=== PATIENT | female | born 2000 | race Caucasian/White ===

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

== ENCOUNTER → 2019-10-11 | Outpatient (CLI) | payer OTHER | LOC: MRI 10:00 | DX: D35.2 Benign neoplasm of pituitary gland (principal); N64.3 Galactorrhea not associated with childbirth ==

== ENCOUNTER → 2019-12-14 | Outpatient (CLI) | payer OTHER | END | disposition home or self-care (01) | LOC: US 11-27 10:00 | DX: N64.3 Galactorrhea not associated with childbirth (principal); N64.4 Mastodynia ==

== ENCOUNTER 2020-01-08 13:44 | Emergency (ER) | payer OTHER ==
[~2020-01-08] VITALS: Ht 162.5 cm; Wt 93.0 kg
[2020-01-08 13:49] VITALS: BP 116/68
[2020-01-08] MEDS ORDERED: IBU600 M1 PO (15:12)
== END 2020-01-08 15:16 | disposition home or self-care (01) ==
LOC: ED 13:44
DX: S90.31XA Contusion of right foot, initial encounter (principal); J45.909 Unspecified asthma, uncomplicated; W10.8XXA Fall (on) (from) other stairs and steps, initial encounter; Y93.89 Activity, other specified; Y92.89 Other specified places as the place of occurrence of the external cause; Y99.8 Other external cause status

== ENCOUNTER 2020-10-01 13:53 | Emergency (ER) | payer OTHER ==
[~2020-10-01] VITALS: Wt 95.3 kg
[~2020-10-01 13:53] MED LIST changes: +IBU600 M1 PO
[2020-10-01 14:31] LABS: BASO % 0.4 % (0.0-1.0); EOS # 0.1 10*3/uL (0.0-0.4); EOS % 1.3 % (1.0-4.0); HEMATOCRIT 42.3 % (37.0-47.0); LYMPH # 2.2 10*3/uL (1.3-4.4); LYMPH % 28.1 % (27.0-41.0); MEAN CELL VOLUME 90.4 fl (81.0-99.0); MEAN CORPUSCULAR HGB 29.5 pg (27.0-31.0); MEAN CORPUSCULAR HGB CONC 32.6 g/dl (33.0-37.0); MONO # 0.4 10*3/uL (0.1-1.0); MONO % 4.7 % (3.0-9.0); NEUT # 5.1 10*3/uL (2.3-7.9); NEUT % 65.4 % (47.0-73.0); PLATELET COUNT AUTOMATED 281 10*3/uL (130-400); RED BLOOD COUNT 4.68 10*6/uL (4.10-5.10); RED CELL DISTRI WIDTH 13.3 % (0-14.5); WHITE BLOOD COUNT 7.8 10*3/uL (4.8-10.8)
[2020-10-01 14:42] LABS: BUN 10 mg/dl (7-24); CHLORIDE 107 mmol/L (98-107); CREATININE 0.84 mg/dL (0.55-1.02); SODIUM 139 mmol/L (136-145)
[2020-10-01 17:53] VITALS: BP 122/60
[2020-10-01] MEDS ORDERED: OMEPRAZOLE40 MG PO (18:11)
== END 2020-10-01 18:30 | disposition home or self-care (01) ==
LOC: ED 13:53
PROVIDERS: Internal Medicine
DX: M94.0 Chondrocostal junction syndrome [Tietze] (principal); K21.9 Gastro-esophageal reflux disease without esophagitis; Z79.899 Other long term (current) drug therapy

== ENCOUNTER 2021-01-31 22:12 | Emergency (ER) | payer OTHER ==
[~2021-01-31] VITALS: Ht 162.5 cm; Wt 95.3 kg
[~2021-01-31 22:12] MED LIST changes: +OMEPRAZOLE40 MG PO
[2021-01-31 22:26] VITALS: BP 120/63
[2021-01-31 23:12] LABS: BASO # 0.1 10*3/uL (0.0-0.1); BASO % 0.4 % (0.0-1.0); EOS # 0.1 10*3/uL (0.0-0.4); EOS % 0.6 % (1.0-4.0); HEMATOCRIT 38.7 % (37.0-47.0); LYMPH # 2.3 10*3/uL (1.3-4.4); LYMPH % 16.9 % (27.0-41.0); MEAN CELL VOLUME 91.1 fl (81.0-99.0); MEAN CORPUSCULAR HGB 29.6 pg (27.0-31.0); MEAN CORPUSCULAR HGB CONC 32.6 g/dl (33.0-37.0); MEAN PLATELET VOLUME 10.3 fl (9.6-12.3); MONO # 0.7 10*3/uL (0.1-1.0); MONO % 4.9 % (3.0-9.0); NEUT # 10.4 10*3/uL (2.3-7.9); NEUT % 76.8 % (47.0-73.0); PLATELET COUNT AUTOMATED 278 10*3/uL (130-400); RED BLOOD COUNT 4.25 10*6/uL (4.10-5.10); RED CELL DISTRI WIDTH 13.5 % (0-14.5); WHITE BLOOD COUNT 13.6 10*3/uL (4.8-10.8)
== END 2021-02-01 00:23 | disposition home or self-care (01) ==
LOC: ED 22:12
PROVIDERS: Emergency Medicine
DX: O26.891 Other specified pregnancy related conditions, first trimester (principal); K21.9 Gastro-esophageal reflux disease without esophagitis; G43.909 Migraine, unspecified, not intractable, without status migrainosus

== ENCOUNTER 2022-02-04 17:01 | Emergency (ER) | payer OTHER ==
[~2022-02-04] VITALS: Wt 111.6 kg
[2022-02-04 17:11] VITALS: BP 142/80
[2022-02-04 18:25] LABS: BASO # 0.1 10*3/uL (0.0-0.1); BASO % 0.6 % (0.0-1.0); EOS # 0.3 10*3/uL (0.0-0.4); EOS % 3.4 % (1.0-4.0); HEMATOCRIT 40.9 % (37.0-47.0); LYMPH # 2.1 10*3/uL (1.3-4.4); LYMPH % 23.6 % (27.0-41.0); MEAN CELL VOLUME 89.3 fl (81.0-99.0); MEAN CORPUSCULAR HGB 29.3 pg (27.0-31.0); MEAN CORPUSCULAR HGB CONC 32.8 g/dl (33.0-37.0); MEAN PLATELET VOLUME 10.3 fl (9.6-12.3); MONO # 0.5 10*3/uL (0.1-1.0); MONO % 5.9 % (3.0-9.0); NEUT # 5.9 10*3/uL (2.3-7.9); NEUT % 66.2 % (47.0-73.0); PLATELET COUNT AUTOMATED 283 10*3/uL (130-400); RED BLOOD COUNT 4.58 10*6/uL (4.10-5.10); RED CELL DISTRI WIDTH 13.1 % (0-14.5); WHITE BLOOD COUNT 8.9 10*3/uL (4.8-10.8)
[2022-02-04 18:42] LABS: ALKALINE PHOSPHATASE 115 U/L (45-117); BUN 12 mg/dl (7-24); CHLORIDE 106 mmol/L (98-107); CREATININE 0.72 mg/dL (0.55-1.02); POTASSIUM 4.2 mmol/L (3.5-5.1); SGOT/AST 9 IU/L (3-35); SGPT/ALT 22 U/L (12-78); SODIUM 137 mmol/L (136-145); TOTAL PROTEIN 7.2 gm/dL (6.4-8.2)
[2022-02-04 20:21] LABS: BILIRUBIN Negative (Negative); BLOOD 3+ (Negative); CLARITY Cloudy (Clear); COLOR Yellow (Yellow); GLUCOSE Negative (Negative); KETONE Negative (Negative); LEUKO ESTERASE Trace (Negative); NITRITE Negative (Negative); UROBILINOGEN 0.2 E.U./dl (0.0-1.0)
[2022-02-04 20:27] LABS: BACTERIA 1+; RBC 31-40 rbc/hpf (0-2)
[2022-02-04 20:29] LABS: URINE AMPHETAMINES < 1000 (1000ng/ml); URINE BARBITURATES < 200 (200ng/ml); URINE BENZODIAZEPINES < 200 (200ng/ml); URINE CANNABINOIDS (THC) < 50 (50ng/ml); URINE COCAINE < 300 (300ng/ml); URINE METHADONE < 300 (300ng/ml); URINE OPIATES < 300 (300ng/ml)
[2022-02-04 20:31] LABS: URINE PHENCYCLIDINE < 25 (25ng/ml)
[2022-02-04] MEDS ORDERED: NAPROSYN500 MG PO (20:36)
[2022-02-04] MEDS ORDERED: ZANAFLEX4 MG PO (20:36)
== END 2022-02-04 20:43 | disposition home or self-care (01) ==
LOC: ED 17:01
PROVIDERS: Nurse Practitioner Family
DX: S29.011A Strain of muscle and tendon of front wall of thorax, initial encounter (principal); X58.XXXA Exposure to other specified factors, initial encounter; Y93.89 Activity, other specified; Y92.89 Other specified places as the place of occurrence of the external cause; Y99.8 Other external cause status

== ENCOUNTER → 2022-05-07 | Outpatient (CLI) | payer OTHER ==
[~2022-05-07] MED LIST changes: +ZANAFLEX4 MG PO
== END | disposition home or self-care (01) ==
LOC: US 14:00
PROVIDERS: ATTEND Nurse Practitioner Women's Health
DX: N83.02 Follicular cyst of left ovary (principal); N83.01 Follicular cyst of right ovary; R93.89 Abnormal findings on diagnostic imaging of other specified body structures; N63.0 Unspecified lump in unspecified breast

== ENCOUNTER → 2022-08-05 | Outpatient (CLI) | payer OTHER ==
[2022-08-06 06:07] LABS: HBSAG Negative (Negative); HEP B CORE AB, IGM Negative (Negative); HEPATITIS B SURFACE AB Non Reactive (.); HEPATITIS C ANTIBODY Non Reactive (Non Reactive)
[2022-08-06 14:08] LABS: ANTI-SMOOTH MUSCLE ANTIBODY 6 Units (0-19)
== END | disposition home or self-care (01) ==
LOC: US 01:09 → LAB 01:09 → US 08:30
PROVIDERS: Student in an Organized Health Care Education/Training Program; ATTEND Family Medicine
DX: R74.8 Abnormal levels of other serum enzymes (principal); R10.11 Right upper quadrant pain; R11.0 Nausea; R19.7 Diarrhea, unspecified

== ENCOUNTER → 2022-08-27 | Outpatient (CLI) | payer OTHER | END | disposition home or self-care (01) | LOC: NM 00:48 | PROVIDERS: ATTEND Student in an Organized Health Care Education/Training Program | DX: R10.11 Right upper quadrant pain (principal); R94.8 Abnormal results of function studies of other organs and systems ==

== ENCOUNTER 2022-09-06 17:05 | Emergency (ER) | payer OTHER ==
[~2022-09-06] VITALS: Ht 162.6 cm; Wt 108.9 kg
[2022-09-06 17:13] VITALS: BP 124/74
[2022-09-06 17:34] LABS: BASO % 0.4 % (0.0-1.0); EOS # 0.1 10*3/uL (0.0-0.4); EOS % 1.3 % (1.0-4.0); HEMATOCRIT 40.2 % (37.0-47.0); LYMPH # 2.4 10*3/uL (1.3-4.4); LYMPH % 25.2 % (27.0-41.0); MEAN CELL VOLUME 90.7 fl (81.0-99.0); MEAN CORPUSCULAR HGB 29.3 pg (27.0-31.0); MEAN CORPUSCULAR HGB CONC 32.3 g/dl (33.0-37.0); MEAN PLATELET VOLUME 10.2 fl (9.6-12.3); MONO # 0.5 10*3/uL (0.1-1.0); MONO % 5.2 % (3.0-9.0); NEUT # 6.3 10*3/uL (2.3-7.9); NEUT % 67.6 % (47.0-73.0); PLATELET COUNT AUTOMATED 285 10*3/uL (130-400); RED BLOOD COUNT 4.43 10*6/uL (4.10-5.10); RED CELL DISTRI WIDTH 12.7 % (0-14.5); WHITE BLOOD COUNT 9.4 10*3/uL (4.8-10.8)
[2022-09-06 17:49] LABS: BUN 9 mg/dl (9-23); CHLORIDE 107 mmol/L (98-107); POTASSIUM 3.9 mmol/L (3.4-5.1)
[2022-09-06] MEDS ORDERED: PREDNISONE20 M1 PO (19:22)
[2022-09-06] MEDS ORDERED: CIPRO500 MG PO (19:22)
[2022-09-06] MEDS ORDERED: METRONIDAZOLE500 M1 PO (19:22)
== END 2022-09-06 19:39 | disposition home or self-care (01) ==
LOC: ED 17:05
PROVIDERS: Internal Medicine
DX: K52.9 Noninfective gastroenteritis and colitis, unspecified (principal); K62.5 Hemorrhage of anus and rectum

== ENCOUNTER 2022-12-19 14:06 | Emergency (ER) | payer OTHER ==
[~2022-12-19] VITALS: Ht 162.5 cm; Wt 108.9 kg
[~2022-12-19 14:06] MED LIST changes: +CIPRO500 MG PO; +METRONIDAZOLE500 M1 PO; +PREDNISONE20 M1 PO
[2022-12-19 14:20] VITALS: BP 128/69
[2022-12-19] MEDS ORDERED: OMEPRAZOLE40 MG PO (14:21)
[2022-12-19] MEDS ORDERED: MEDROXYPROGESTE10 M1 PO (14:21)
[2022-12-19] MEDS ORDERED: FAMOTIDINE40 MG PO (14:21)
== END 2022-12-19 17:05 | disposition home or self-care (01) ==
LOC: ED 14:06
DX: S93.402A Sprain of unspecified ligament of left ankle, initial encounter (principal); J45.909 Unspecified asthma, uncomplicated; F32.A Depression, unspecified; Z88.8 Allergy status to other drugs, medicaments and biological substances; Z98.890 Other specified postprocedural states; W10.9XXA Fall (on) (from) unspecified stairs and steps, initial encounter; Y93.89 Activity, other specified; Y92.89 Other specified places as the place of occurrence of the external cause; Y99.8 Other external cause status

== ENCOUNTER → 2023-01-29 | Outpatient (CLI) | payer OTHER ==
[~2023-01-29] MED LIST changes: +FAMOTIDINE40 MG PO; +MEDROXYPROGESTE10 M1 PO
[2023-01-29 12:23] LABS: ALKALINE PHOSPHATASE 121 U/L (46-116); BUN 8 mg/dl (9-23); CHLORIDE 106 mmol/L (98-107); FREE T4 0.92 ng/dl (0.89-1.76); POTASSIUM 4.2 mmol/L (3.4-5.1); SGPT/ALT 22 U/L (10-49); TOTAL PROTEIN 7.1 gm/dL (6.0-8.0)
[2023-01-30 05:06] LABS: ALPHA-1-ANTITRYPSIN, SERUM 145 mg/dL (100-188)
[2023-01-30 15:06] LABS: ANTI-SMOOTH MUSCLE ANTIBODY 4 Units (0-19)
[2023-01-30 16:07] LABS: t-TRANSGLUTAMINASE (tTG) IGA <2 U/mL (0-3); t-TRANSGLUTAMINASE (tTG) IgG <2 U/mL (0-5)
== END | disposition home or self-care (01) ==
LOC: LAB 11:17
PROVIDERS: ATTEND Nurse Practitioner Family
DX: R53.83 Other fatigue (principal); R94.5 Abnormal results of liver function studies

== ENCOUNTER → 2023-02-02 | Outpatient (CLI) | payer OTHER | END | disposition home or self-care (01) | LOC: D 09:20 | PROVIDERS: ATTEND Student in an Organized Health Care Education/Training Program | DX: E66.01 Morbid (severe) obesity due to excess calories (principal) ==

== ENCOUNTER 2023-02-25 20:33 | Emergency (ER) | payer OTHER ==
[~2023-02-25] VITALS: Ht 162.5 cm; Wt 113.4 kg
[2023-02-25 20:45] VITALS: BP 104/54
[2023-02-25 21:20] LABS: BASO % 0.1 % (0.0-1.0); EOS # 0.1 10*3/uL (0.0-0.4); EOS % 1.2 % (1.0-4.0); HEMATOCRIT 39.4 % (37.0-47.0); LYMPH # 0.8 10*3/uL (1.3-4.4); LYMPH % 8.1 % (27.0-41.0); MEAN CELL VOLUME 88.1 fl (81.0-99.0); MEAN CORPUSCULAR HGB 28.6 pg (27.0-31.0); MEAN CORPUSCULAR HGB CONC 32.5 g/dl (33.0-37.0); MEAN PLATELET VOLUME 10.5 fl (9.6-12.3); MONO # 0.2 10*3/uL (0.1-1.0); MONO % 2.3 % (3.0-9.0); NEUT # 8.8 10*3/uL (2.3-7.9); NEUT % 88.1 % (47.0-73.0); PLATELET COUNT AUTOMATED 251 10*3/uL (130-400); RED BLOOD COUNT 4.47 10*6/uL (4.10-5.10); RED CELL DISTRI WIDTH 13.1 % (0-14.5); WHITE BLOOD COUNT 9.9 10*3/uL (4.8-10.8)
[2023-02-25 21:41] LABS: ALKALINE PHOSPHATASE 108 U/L (46-116); BETA-HCG, QUANT < 3.0 mIU/mL (3-10); BUN 10 mg/dl (9-23); CHLORIDE 106 mmol/L (98-107); POTASSIUM 3.8 mmol/L (3.4-5.1); SGPT/ALT 23 U/L (10-49); TOTAL PROTEIN 6.9 gm/dL (6.0-8.0)
[2023-02-25] MEDS ORDERED: REGLAN5 MG PO (22:37)
== END 2023-02-25 22:42 | disposition home or self-care (01) ==
LOC: ED 20:33
PROVIDERS: Physician Assistant Medical
DX: R11.2 Nausea with vomiting, unspecified (principal); R10.11 Right upper quadrant pain; J45.909 Unspecified asthma, uncomplicated; F32.A Depression, unspecified; Z88.8 Allergy status to other drugs, medicaments and biological substances; Z98.890 Other specified postprocedural states

== ENCOUNTER 2023-06-19 18:45 | Emergency (ER) | payer OTHER ==
[~2023-06-19] VITALS: Ht 162.5 cm; Wt 117.9 kg
[~2023-06-19 18:45] MED LIST changes: +REGLAN5 MG PO
[2023-06-19 18:51] VITALS: BP 133/92
[2023-06-19] MEDS ORDERED: PREDNISONE50 MG PO (22:33)
[2023-06-19] MEDS ORDERED: EXPECTORANT200 MG PO (22:33)
[2023-06-19] MEDS ORDERED: VENT7GM INH (22:44)
== END 2023-06-19 22:46 | disposition home or self-care (01) ==
LOC: ED 18:45
DX: B34.9 Viral infection, unspecified (principal); J45.909 Unspecified asthma, uncomplicated; F32.A Depression, unspecified; Z98.890 Other specified postprocedural states; Z20.822 Contact with and (suspected) exposure to COVID-19

== ENCOUNTER → 2023-07-24 | Outpatient (CLI) | payer OTHER ==
[~2023-07-24] MED LIST changes: +EXPECTORANT200 MG PO; +PREDNISONE50 MG PO; +VENT7GM INH
[2023-07-24 11:09] LABS: BASO % 0.4 % (0.0-1.0); EOS # 0.1 10*3/uL (0.0-0.4); EOS % 1.5 % (1.0-4.0); HEMATOCRIT 43.1 % (37.0-47.0); LYMPH # 2.5 10*3/uL (1.3-4.4); LYMPH % 34.2 % (27.0-41.0); MEAN CELL VOLUME 89.8 fl (81.0-99.0); MEAN CORPUSCULAR HGB 27.7 pg (27.0-31.0); MEAN CORPUSCULAR HGB CONC 30.9 g/dl (33.0-37.0); MEAN PLATELET VOLUME 10.2 fl (9.6-12.3); MONO # 0.3 10*3/uL (0.1-1.0); MONO % 4.6 % (3.0-9.0); NEUT # 4.4 10*3/uL (2.3-7.9); NEUT % 58.9 % (47.0-73.0); PLATELET COUNT AUTOMATED 316 10*3/uL (130-400); RED CELL DISTRI WIDTH 13.3 % (0-14.5); WHITE BLOOD COUNT 7.4 10*3/uL (4.8-10.8)
[2023-07-24 11:42] LABS: ALKALINE PHOSPHATASE 108 U/L (46-116); BUN 8 mg/dl (9-23); CHLORIDE 107 mmol/L (98-107); CHOLESTEROL 101 mg/dL (<200); POTASSIUM 4.5 mmol/L (3.4-5.1); SGPT/ALT 31 U/L (5-49); TRIGLYCERIDES 65 mg/dl (<150)
== END | disposition home or self-care (01) ==
LOC: LAB 10:40
PROVIDERS: ATTEND Student in an Organized Health Care Education/Training Program
DX: E44.1 Mild protein-calorie malnutrition (principal); E55.9 Vitamin D deficiency, unspecified; E66.01 Morbid (severe) obesity due to excess calories

== ENCOUNTER 2023-10-30 10:13 | Emergency (ER) | payer OTHER ==
[~2023-10-30] VITALS: Ht 162.5 cm; Wt 113.4 kg
[2023-10-30 10:41] VITALS: BP 133/83
[2023-10-30] MEDS ORDERED: EXCEDRIN MIGRA1 EAC1 PO (10:44)
[2023-10-30] MEDS ORDERED: CIPROFLOXACIN H10 ML OPH (10:54)
[2023-10-30] MEDS ORDERED: AVPAK AZITHROM250 M1 PO (10:54)
== END 2023-10-30 10:57 | disposition home or self-care (01) ==
LOC: ED 10:13
DX: J32.9 Chronic sinusitis, unspecified (principal); H10.9 Unspecified conjunctivitis; F17.210 Nicotine dependence, cigarettes, uncomplicated; Z79.899 Other long term (current) drug therapy; Z79.82 Long term (current) use of aspirin

== ENCOUNTER → 2023-11-29 | Outpatient (CLI) | payer OTHER ==
[~2023-11-29] MED LIST changes: +AVPAK AZITHROM250 M1 PO; +CIPROFLOXACIN H10 ML OPH; +EXCEDRIN MIGRA1 EAC1 PO
[2023-11-29 11:50] LABS: BASO # 0.1 10*3/uL (0.0-0.1); BASO % 0.7 % (0.0-1.0); EOS # 0.5 10*3/uL (0.0-0.4); EOS % 5.1 % (1.0-4.0); HEMATOCRIT 40.1 % (37.0-47.0); LYMPH # 2.6 10*3/uL (1.3-4.4); MEAN CELL VOLUME 88.5 fl (81.0-99.0); MEAN CORPUSCULAR HGB CONC 31.7 g/dl (33.0-37.0); MEAN PLATELET VOLUME 10.2 fl (9.6-12.3); MONO # 0.5 10*3/uL (0.1-1.0); MONO % 4.7 % (3.0-9.0); NEUT # 5.9 10*3/uL (2.3-7.9); NEUT % 62.2 % (47.0-73.0); PLATELET COUNT AUTOMATED 325 10*3/uL (130-400); RED BLOOD COUNT 4.53 10*6/uL (4.10-5.10); RED CELL DISTRI WIDTH 14.1 % (0-14.5); WHITE BLOOD COUNT 9.5 10*3/uL (4.8-10.8)
== END ==
LOC: LAB 11:21
PROVIDERS: ATTEND Nurse Practitioner Primary Care
DX: J40 Bronchitis, not specified as acute or chronic (principal); N92.6 Irregular menstruation, unspecified; E03.9 Hypothyroidism, unspecified; R68.89 Other general symptoms and signs; R05.9 Cough, unspecified; R06.02 Shortness of breath

== ENCOUNTER 2024-06-19 00:25 | Emergency (ER) | payer OTHER ==
[~2024-06-19] VITALS: Ht 162.5 cm; Wt 113.4 kg
[2024-06-19 00:37] VITALS: BP 121/73
[2024-06-19] MEDS ORDERED: Ondansetron Hydrochloride 4 MG TAB SL ONE (00:50)
== END 2024-06-19 02:36 | disposition home or self-care (01) ==
LOC: ED 00:25
DX: S06.0XAA Concussion with loss of consciousness status unknown, initial encounter (principal); H53.149 Visual discomfort, unspecified; J45.909 Unspecified asthma, uncomplicated; F32.A Depression, unspecified; R11.0 Nausea; Z88.8 Allergy status to other drugs, medicaments and biological substances; Z98.890 Other specified postprocedural states; W01.198A Fall on same level from slipping, tripping and stumbling with subsequent striking against other object, initial encounter; Y93.89 Activity, other specified; Y92.009 Unspecified place in unspecified non-institutional (private) residence as the place of occurrence of the external cause; Y99.8 Other external cause status

== ENCOUNTER 2025-04-26 21:33 | Emergency (ER) | payer OTHER ==
[~2025-04-26] VITALS: Ht 160 cm; Wt 81.6 kg
[2025-04-27 02:31] VITALS: BP 132/78
== END 2025-04-27 04:14 | disposition home or self-care (01) ==
LOC: ED 21:33
DX: S00.33XA Contusion of nose, initial encounter (principal); K21.9 Gastro-esophageal reflux disease without esophagitis; G43.909 Migraine, unspecified, not intractable, without status migrainosus; Z91.040 Latex allergy status; Z88.8 Allergy status to other drugs, medicaments and biological substances; Z87.42 Personal history of other diseases of the female genital tract; W50.0XXA Accidental hit or strike by another person, initial encounter; Y93.89 Activity, other specified; Y92.89 Other specified places as the place of occurrence of the external cause; Y99.8 Other external cause status